=== PATIENT | female | born 1935 | race Caucasian/White ===

== ENCOUNTER 2019-03-14 08:30 | Inpatient (IN) | payer MEDICARE ==
[~2019-03-14] VITALS: Ht 152.4 cm; Wt 84.6 kg
[~2019-03-14 08:30] MED LIST: ASPI325T80 PO; CA C1TAB64 PO; CHOL200074 PO; DOCU50CA3 PO; METO25TA91 PO; OMEG1CAP23 PO; OMEG1CAP24 PO; PARO20TA98 PO; TRIA1CAP3 PO
[2019-03-14 10:12] VITALS: BP 146/78
[2019-03-14] MEDS ORDERED: SOTALOL 80MG TABLET ONE (10:20)
[2019-03-14] MEDS: SOTALOL 80MG TABLET PO SCH ×2 (10:23→20:50)
[2019-03-14] MEDS ORDERED: RIVA15TA PO (10:35)
[2019-03-14] MEDS ORDERED: ONDANSETRON 2MG/ML, 2ML IVPush PRN (11:30)
[2019-03-14] MEDS ORDERED: BISACODYL 10 MG SUPP PR PRN (11:30)
[2019-03-14] MEDS ORDERED: ACETAMINOPHEN 325 MG TABLET PO PRN (11:30)
[2019-03-14] MEDS ORDERED: ZOLPIDEM 5MG TABLET PO PRN (11:30)
[2019-03-14] MEDS ORDERED: BISACODYL 5 MG EC TABLET PO PRN (11:30)
[2019-03-14 12:19] LABS: ANION GAP 7 mmol/L (5-15); CALCIUM 8.9 mg/dL (8.5-10.1); CHLORIDE 112 mmol/L (98-107)
[2019-03-14 12:26] LABS: CHOL/HDL RATIO 2.9; CHOLESTEROL, TOTAL 144 mg/dL (140-239); CREATININE 1.12 mg/dL (0.55-1.02); FREE T4 (FREE THYROXINE) 1.04 ng/dL (0.76-1.46); HDL CHOL % 35 % (28-40); HDL CHOLESTEROL (DIRECT) 50 mg/dL (40-60); LDL CHOLESTEROL,CALCULATED 67 mg/dL (54-169); LDL/HDL RATIO 1.3 (0.5-3.0); TRIGLYCERIDES 135 mg/dL (50-200); TROPONIN I < 0.015 ng/mL (0.000-0.045); VLDL CHOLESTEROL 27 mg/dL (0-25)
[2019-03-14 16:25] LABS: TROPONIN I < 0.015 ng/mL (0.000-0.045)
[2019-03-14 19:59] VITALS: BP 100/56
[2019-03-14 22:44] LABS: TROPONIN I < 0.015 ng/mL (0.000-0.045)
[2019-03-15 02:53] VITALS: BP 118/69
[2019-03-15 08:00] VITALS: BP 110/70
[2019-03-15] MEDS: LISINOPRIL 20 MG TABLET PO SCH (08:47)
[2019-03-15] MEDS: RIVAROXABAN 15 MG TABLET PO SCH (08:47)
[2019-03-15] MEDS: SOTALOL 80MG TABLET PO SCH ×2 (08:47→20:58)
[2019-03-15] MEDS: POTASSIUM CHLORIDE 20 MEQ TAB.ER.PRT PO SCH (08:47)
[2019-03-15] MEDS: TEMPLATE NON-FORMULARY MED. (VESICARE 10 MG) PO SCH (08:47)
[2019-03-15 11:17] VITALS: BP 122/74
[2019-03-15] MEDS ORDERED: SODIUM CHLORIDE 0.9% 1,000 ML IV SCH (12:00)
[2019-03-15 13:20] VITALS: BP 110/68
[2019-03-15 19:04] VITALS: BP 142/81
[2019-03-16 01:54] VITALS: BP 111/52
[2019-03-16 07:20] VITALS: BP 118/63
[2019-03-16] MEDS: LISINOPRIL 20 MG TABLET PO SCH (08:10)
[2019-03-16] MEDS: RIVAROXABAN 15 MG TABLET PO SCH (08:10)
[2019-03-16] MEDS: SOTALOL 80MG TABLET PO SCH (08:10)
[2019-03-16] MEDS: POTASSIUM CHLORIDE 20 MEQ TAB.ER.PRT PO SCH (08:10)
[2019-03-16] MEDS: TEMPLATE NON-FORMULARY MED. (VESICARE 10 MG) PO SCH (09:00)
[2019-03-16] MEDS ORDERED: LIDOCAINE 2%, 20ML ONE (13:41)
[2019-03-16] MEDS ORDERED: ACET325T26 PO (14:11)
[2019-03-16] MEDS ORDERED: POTA20TA6 PO (14:11)
[2019-03-16] MEDS ORDERED: SOTA80TA18 PO (14:11)
[2019-03-16] MEDS ORDERED: LISI-170 PO (14:11)
[2019-03-16 14:15] VITALS: BP 144/82
== END 2019-03-16 16:35 | disposition home or self-care (01) | DRG 309 ==
LOC: 5SO 09:41 → DCLOUNGE 03-16 16:28
PROVIDERS: ADMIT Internal Medicine Cardiovascular Disease; ATTEND Internal Medicine Cardiovascular Disease
DX: I48.0 Paroxysmal atrial fibrillation (principal); D68.69 Other thrombophilia; I49.3 Ventricular premature depolarization; I10 Essential (primary) hypertension; I25.10 Atherosclerotic heart disease of native coronary artery without angina pectoris; E78.00 Pure hypercholesterolemia, unspecified; Z88.8 Allergy status to other drugs, medicaments and biological substances; Z87.891 Personal history of nicotine dependence
CPT/HCPCS: 33286; 36415; 71046; 80048; 80061; 84439; 84443; 84484; 85014; 85018; 93005; G0378; J7030